=== PATIENT | male | born 1980 | race Caucasian/White ===

== ENCOUNTER → 2019-06-17 13:22 | Outpatient (CLI) | payer OTHER, SELFPAY ==
[2019-06-17 13:15] VITALS: BMI 22.9
--- NOTE | 2019-06-17 13:23 | RAD_ITS ---
STUDY: X-RAY - RIGHT SHOULDER REASON FOR EXAM: Pain. TECHNIQUE: 3 view(s) of the shoulder. COMPARISON: None. FINDINGS: Normal glenohumeral articulation. There is mild acromioclavicular arthrosis. Normal acromion. Normal humeral head and visualized proximal humerus. The soft tissue structures are unremarkable. Normal visualized pulmonary apex. RAD/Shoulder min 2 Views IMPRESSION: Mild acromioclavicular arthrosis. Electronically Signed: Audi Stark MD at 12:11 EST Tel , Service support ,
== END ==
PROVIDERS: Referring Provider Orthopaedic Surgery; Visit Provider Orthopaedic Surgery
DX: M25.511 Pain in right shoulder (principal)
CPT/HCPCS: 73030

== ENCOUNTER 2019-07-08 18:30 | Outpatient (RCR) | payer OTHER, SELFPAY ==
[2019-06-17 13:15] VITALS: BMI 22.9
--- NOTE | 2019-06-24 19:04 | HP.PTEVAL_ITS ---
Patient's Visit Information GRAEME GRIFFIN is a 38 year old M referred to Physical Therapy by Kat Quinonez DO with a diagnosis of R shoulder impingement. Date of Evaluation: 06/24/19 Physical Therapist: Fabien Worley, PT, ATC - Visit Plan Frequency: 2x /Week Duration: 1 Week Plan: Issue and instruct in R shoulder rotator cuff and scap strengthening program in 2 visits - Subjective Findings: Pt reports R shoulder has been sore chronically. 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 Pt is R hand dominant. 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 Pt reports his R shoulder has been spasming for a couple weeks. Pt reports Occasional tingling or numbness in R UE. Occasional sleep difficulty secondary to pain. Pt reports a lot of pain while he is typing. 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 B bicepital reflex= 2/3. Palpation: No pain at this time. Minorr R AC deformity. ROM: L shoulder flex= 155, abd= 180, ER= 55, IR WNL; R shoulder flex= 145, abd= 125, ER= 45, IR WNL. MMT: R shoulder IR and ER 4/5 and painful. All other s 5/5 throughout. Special tests. - Goals Goal 1:: I with HEP Goal Time Frame: 2 Weeks - Rehabilitation Potential Physical Therapy Diagnosis: R shoulder pain, weakness, and limited ROM secondary to R shoulder impingement Rehabilitation Potential: Good - Anticipated Interventions Patient/Client Instruction: Educate patient on: Condition, Plan of Care For the Purpose of:: To improve self management Therapeutic Exercise to Include: Strength training, Endurance training, Flexibilty training, Scapular Strength/Stabilization For the Purpose of:: To decrease pain, To increase ROM, To improve muscle performance and motor function Cryotherapy (ice pack, ice massage): Yes For the Purpose of:: To decrease pain Thank you for the opportunity to evaluate your patient. For Medicare and Medicare HMO plans, please review the plan of care and approve it. It will need to be FAXED BACK to us at [phone] for Medicare purposes. For Medicare only, by signing this I certify the plan of care. Please let me know if there are questions or concerns regarding this plan of care. Physician Signature: Date:
--- NOTE | 2019-09-01 08:33 | HP.PT.NRP ---
GRAEME GRIFFIN was seen in my office for initial evaluation on 06/24/19. The following Plan of Care was established for this patient: Initial Frequency: 2x /Week Initial Duration: 1 Week Patient/Client Instruction: Educate patient on: Condition, Plan of Care For the Purpose of:: To improve self management Therapeutic Exercise to Include: Strength training, Endurance training, Flexibilty training, Scapular Strength/Stabilization For the Purpose of:: To decrease pain, To increase ROM, To improve muscle performance and motor function Cryotherapy (ice pack, ice massage): Yes For the Purpose of:: To decrease pain This patient was last seen in our office . Pertinent comments regarding their Physical therapy will appear below: Pt was treated for 3 visits for R shoulder pain through the date of 07/08/19. Pt has not returned through this date and is discontinued at this time. At this point I will be discontinuing this patient from physical therapy. I would be happy to see this patient again in the future if found appropriate by the physician. Thank you! Fabien Worley, PT, ATC
== END 2019-07-08 19:00 | disposition home or self-care (01) ==
LOC: PT 18:30
PROVIDERS: Referring Provider Orthopaedic Surgery; Visit Provider Orthopaedic Surgery
DX: M75.51 Bursitis of right shoulder (principal); M75.41 Impingement syndrome of right shoulder
CPT/HCPCS: 97110; 97161

== ENCOUNTER → 2020-04-17 17:29 | Outpatient (CLI) | payer OTHER, SELFPAY ==
[2019-06-17 13:15] VITALS: BMI 22.9
== END ==
PROVIDERS: Referring Provider Physician Assistant; Visit Provider Physician Assistant
DX: J02.9 Acute pharyngitis, unspecified (principal); R50.9 Fever, unspecified; R05 Cough; R53.83 Other fatigue; R51.9 Headache, unspecified; M79.10 Myalgia, unspecified site; R09.89 Other specified symptoms and signs involving the circulatory and respiratory systems; Z20.828 Contact with and (suspected) exposure to other viral communicable diseases
CPT/HCPCS: 87635; C9803; U0003

== ENCOUNTER → 2024-05-06 | Outpatient (CLI) | payer OTHER, SELFPAY ==
--- NOTE | 2024-05-06 12:34 | RAD_ITS ---
INDICATION: cervical strain EXAMINATION/TECHNIQUE: X-RAY - XR Spine Cervical 2 or 3 Views COMPARISON: No relevant prior comparison study available FINDINGS: VERTEBRAE: Preserved vertebral body height. No fracture. No spondylolisthesis. Straightening of the cervical spine. No significant facet arthropathy. DISCS: Mild narrowing of C5-C6 and C6-C7 disc spaces. Endplate spondylosis. No critical stenosis. NECK SOFT TISSUES: No prevertebral soft tissue widening. LUNG APICES: Clear. RAD/Cerv Spine 2 or 3 Views IMPRESSION: No evidence of acute fracture or spondylolisthesis. Electronically Signed: Kerwin Barraza MD at 13:40 EST ,
== END | disposition home or self-care (01) ==
PROVIDERS: Referring Provider Physician Assistant Surgical; Visit Provider Physician Assistant Surgical
DX: S16.1XXA Strain of muscle, fascia and tendon at neck level, initial encounter (principal)
CPT/HCPCS: 72040